=== PATIENT | male | born 1980 | race African-American/Black ===

== ENCOUNTER 2018-12-08 13:11 | Inpatient (IN) | payer OTHER ==
--- NOTE | 2018-12-08 14:18 | HP ---
CIWA Score Nausea/Vomitin-Int. Nausea w/Dry Heave Muscle Tremors: 5 Anxiety: 3 Agitation: 4-Moderately Restless Paroxysmal Sweats: 2 Orientation: 0-Oriented Tacttile Disturbances: 1-Very Mild Itch/Numbness Auditory Disturbances: 1-Very Mild Visual Disturbances: 1-Very Mild Sensitivity Headache: 0-None Present CIWA-Ar Total Score: 21 - Admission Criteria OASAS Guidelines: Admission for Medically Managed Detox: Requires at least one of the followin. CIWA greater than 12 2. Seizures within the past 24 hours 3. Delirium tremens within the past 24 hours 4. Hallucinations within the past 24 hours 5. Acute intervention needed for co occurring medical disorder 6. Acute intervention needed for co occurring psychiatric disorder 7. Severe withdrawal that cannot be handled at a lower level of care (continued vomiting, continued diarrhea, abnormal vital signs) requiring intravenous medication and/or fluids 8. Patient presents the following: CIWA greater than 12 Admission Criteria Met: Admission criteria met Admission ROS [facility] - [facility] Chief Complaint: " I got the shakes, I want to stop alcohol, nayan, and ecstasy" Allergies/Adverse Reactions: Allergies Allergy/AdvReac Type Severity Reaction Status Date / Time No Known Allergies Allergy Verified 12/08/18 14:18 History of Present Illness: 38 yo male with hx of alcohol, nayan /ecstasy marijuana, and nicotine dependence is here seeking alcohol detox, self referred. Reports frequent ER visits daily in the past week to [facility] for alcohol withdrawal, reports prior hx of DTS. PMHX: HTN, asthma, GERD, schizophrenia, bipolar and depression. Reports linked to the ACT team at [facility]. Denies suicidal / homicidal ideation. Last detox [facility] one month ago. [place] hx of seizures. reports frequent ETOH blackouts with last episode yesterday. Reports no significant period of sobriety. Exam Limitations: No Limitations - Ebola screening Have you traveled outside of the country in the last 21 days: No Have you had contact with anyone from an Ebola affected area: No - Review of Systems Constitutional: Chills, Loss of Appetite, Changes in sleep, Unintentional Wgt. Loss (appx 30 lbs), Other (fatigue, shakes) EENT: reports: Dental Problems (dentalgia) Respiratory: reports: No Symptoms reported Cardiac: reports: No Symptoms Reported GI: reports: Diarrhea, Nausea, Poor Appetite, Poor Fluid Intake, Abdominal cramping : reports: No Symptoms Reported Musculoskeletal: reports: No Symptoms Reported Integumentary: reports: No Symptoms Reported Neuro: reports: Weakness Endocrine: reports: Increased Thirst Hematology: reports: No Symptoms Reported Psychiatric: reports: Orientated x3, Anxious Other Systems: Reviewed and Negative Patient History - Patient Medical History Hx Anemia: No Hx Asthma: Yes Hx Chronic Obstructive Pulmonary Disease (COPD): No Hx Cancer: No Hx Cardiac Disorders: No Hx Congestive Heart Failure: No Hx Hypertension: Yes (no meds ) Hx Hypercholesterolemia: No Hx Pacemaker: No HX Cerebrovascular Accident: No Hx Seizures: No Hx Dementia: No Hx Diabetes: No Hx Gastrointestinal Disorders: Yes (GERD ) Hx Liver Disease: No Hx Genitourinary Disorders: No Hx Sexually Transmitted Disorders: No Hx Renal Disease (ESRD): No Hx Thyroid Disease: No Hx Human Immunodeficiency Virus (HIV): No Hx Hepatitis C: No Hx Depression: Yes Hx Bipolar Disorder: Yes Hx Schizophrenia: Yes - Patient Surgical History Past Surgical History: No - PPD History Previous Implant?: No (reports tx as child for TB ) Documented Results: Positive w/o proof PPD to be Administered?: No - Smoking Cessation Smoking history: Current every day smoker Have you smoked in the past 12 months: Yes Aproximately how many cigarettes per day: 50 Hx Chewing Tobacco Use: No Initiated information on smoking cessation: Yes 'Breaking Loose' booklet given: 12/08/18 - Substance & Tx. History Hx Alcohol Use: Yes Hx Substance Use: Yes Substance Use Type: Alcohol, Cocaine Hx Substance Use Treatment: Yes (Detox [facility] one month ago left AMA) - Substances Abused Alcohol Route: Oral Frequency: Daily Amount used: 1 gallon liquor Age of first use: 20 Date of Last Use: 12/08/18 nayan Route: Oral Frequency: Daily Amount used: 5 grams Age of first use: 34 Date of Last Use: 12/07/18 marijuana Route: Smoking Frequency: Daily Amount used: 1/2 oz Age of first use: 17 Date of Last Use: 12/08/18 Family Disease History - Family Disease History Family History: Denies Admission Physical Exam [facility] - Physical General Appearance: Yes: Disheveled (unkempt), Severe Distress, Thin, Tremorous , Sweating, Anxious HEENTM: Yes: Hearing grossly Normal, Normocephalic, Normal Voice, ODILIA, Pharynx Normal, Other (poor dentition, dry mucous membranes) Respiratory: Yes: Chest Non-Tender, Lungs Clear, Normal Breath Sounds, No Respiratory Distress, No Accessory Muscle Use Neck: Yes: Within Normal Limits Breast: Yes: Breast Exam Deferred Cardiology: Yes: Regular Rhythm, Tachycardia Abdominal: Yes: Normal Bowel Sounds, Non Tender, Flat, Soft Genitourinary: Yes: Within Normal Limits Back: Yes: Within Normal Limits Musculoskeletal: Yes: full range of Motion, Gait Steady, Pelvis Stable Extremities: Yes: Normal Capillary Refill, Normal Inspection, Normal Range of Motion Neurological: Yes: healthcare interpreter II-XII NML intact, Fully Oriented, Alert, Motor Strength 5/5, Depressed Affect Integumentary: Yes: Normal Color, Warm, Moist Lymphatic: Yes: Within Normal Limits - Diagnostic (1) Alcohol dependence with withdrawal Current Visit: Yes Status: Acute Qualifiers: Complication of substance-induced condition: uncomplicated Qualified Code(s ): F10.230 - Alcohol dependence with withdrawal, uncomplicated (2) Nicotine dependence Current Visit: Yes Status: Acute Qualifiers: Nicotine product type: cigarettes (3) History of treatment for tuberculosis Current Visit: Yes Status: Chronic (4) Psychiatric disorder Current Visit: Yes Status: Chronic Comment: reports hx of bipolar, schizophernia,and depression on hadolol Inj qm (5) Hypertension Current Visit: Yes Status: Chronic Qualifiers: Hypertension type: essential hypertension Qualified Code(s): I10 - Essential (primary) hypertension Comment: no meds (6) Elevated blood pressure reading with diagnosis of hypertension Current Visit: Yes Status: Acute (7) Asthma Current Visit: Yes Status: Chronic Qualifiers: Asthma severity: mild Asthma persistence: unspecified Asthma complication type: uncomplicated Qualified Code(s): J45.909 - Unspecified asthma, uncomplicated (8) Weight loss Current Visit: Yes Status: Acute Cleared for Admission [facility] - Detox or Rehab S Level of Care: Medically Managed Detox Regimen/Protocol: Librium Inpatient Rehab Admission - Rehab Decision to Admit Inpatient rehab admission?: No
[2018-12-08 14:20] VITALS: BMI 20.9
[2018-12-08] MEDS ORDERED: IBUPROFEN 400 MG TABLET (FP) PO PRN (14:21)
[2018-12-08] MEDS ORDERED: LOPERAMIDE HCL 2 MG CAPSULE PO PRN (14:21)
[2018-12-08] MEDS ORDERED: P-EPHED 60MG/TRIPROLIDI 2.5MG TABLET PO PRN (14:21)
[2018-12-08] MEDS ORDERED: guaiFENesin/D-METHORPHAN HB 10 ML UNIT-DOSE CUPS PO PRN (14:21)
[2018-12-08] MEDS ORDERED: MENTHOL/PHENOL 1 EACH UD MM PRN (14:21)
[2018-12-08] MEDS ORDERED: MAGNESIUM CITRATE 300 ML BOTTLE PO PRN (14:21)
[2018-12-08] MEDS ORDERED: MAGNESIUM HYDROX 2400MG/30ML ORAL SUSPENSION 30 ML CUP PO PRN (14:21)
[2018-12-08] MEDS ORDERED: ACETAMINOPHEN 325 MG TABLET (FP) PO PRN (14:21)
[2018-12-08] MEDS ORDERED: chlordiazePOXIDE HCL 25 MG CAPSULE PO ONE (16:45)
[2018-12-08] MEDS ORDERED: cloNIDine HCL 0.1 MG TABLET PO ONE (16:45)
[2018-12-08] MEDS: NICOTINE POLACRILEX 4 MG GUM BC PRN (17:33)
[2018-12-08] MEDS: THIAMINE HCL 100 MG TABLET (FP) PO SCH (22:29)
[2018-12-08] MEDS: BACLOFEN 10 MG TABLET (FP) PO SCH (22:29)
[2018-12-08] MEDS: chlordiazePOXIDE HCL 25 MG CAPSULE PO SCH (22:29)
[2018-12-08] MEDS: MAG HYDROX/AL HYDROX/SIMETH 30 ML UNIT-DOSE CUP PO PRN (22:30)
[2018-12-08] MEDS: MELATONIN 5 MG TABLETS PO PRN (22:30)
[2018-12-09] MEDS: chlordiazePOXIDE HCL 25 MG CAPSULE PO SCH ×4 (05:23→22:14)
[2018-12-09] MEDS: NICOTINE POLACRILEX 4 MG GUM BC PRN ×4 (05:25→22:15)
[2018-12-09] MEDS: NICOTINE 21 MG/24 HOURS TOPICAL PATCH TD SCH (10:14)
[2018-12-09] MEDS: BACLOFEN 10 MG TABLET (FP) PO SCH ×3 (10:14→22:15)
[2018-12-09] MEDS: PRENATAL VITAMINS W/ FOLIC ACID TABLET (FP) PO SCH (10:14)
[2018-12-09 10:53] LABS: HEMATOCRIT 35.9 % (35.4-49); HEMOGLOBIN 12.5 GM/dL (11.7-16.9); MCH 35.9 pg (25.7-33.7); MCHC 34.9 g/dl (32.0-35.9); MEAN CELL VOLUME 103.1 fl (80-96); MEAN PLT VOLUME 8.1 fl (7.5-11.1); PLATELET COUNT 272 K/MM3 (134-434); RBC 3.48 M/mm3 (4.00-5.60); WHITE BLOOD COUNT 8.2 K/mm3 (4.0-10.0)
[2018-12-09 11:12] LABS: ALBUMIN 3.2 g/dl (3.4-5.0); ALK PHOS 86 U/L (45-117); ANION GAP 7 MMOL/L (8-16); BILIRUBIN,TOTAL 0.3 mg/dL (0.2-1); BLOOD UREA NITROGEN 10 mg/dL (7-18); CALCIUM 8.7 mg/dL (8.5-10.1); CHLORIDE 104 mmol/L (98-107); CO2 27 mmol/L (21-32); CREATININE 0.8 mg/dL (0.55-1.3); GLUCOSE,RANDOM 91 mg/dL (74-106); POTASSIUM 3.6 mmol/L (3.5-5.1); SGOT/AST 56 U/L (15-37); SGPT/ALT 50 U/L (13-61); SODIUM 139 mmol/L (136-145); TOT PROT 6.4 g/dl (6.4-8.2)
--- NOTE | 2018-12-09 11:23 | PN ---
S CIWA - CIWA Score Nausea/Vomitin-Mild Nausea/No Vomiting Muscle Tremors: 4-Moderate,w/Arms Extend Anxiety: 4-Mod. Anxious/Guarded Agitation: 4-Moderately Restless Paroxysmal Sweats: 1-Minimal Palms Moist Orientation: 1-Uncertain about Date Tacttile Disturbances: 0-None Auditory Disturbances: 0-None Visual Disturbances: 0-None Headache: 1-Very Mild CIWA-Ar Total Score: 16 [facility] Progress Note (SOAP) Subjective: feet itchy redness between toes involuntary jaw movement increase baclofen to tid tremor sweating restlessness anxiety add librium 50 mg x 1 at 2 pm Objective: 12/09/18 11:21 Vital Signs Temperature 97.9 F 12/09/18 09:50 Pulse Rate 72 12/09/18 09:50 Respiratory Rate 20 12/09/18 09:50 Blood Pressure 126/84 12/09/18 09:50 O2 Sat by Pulse Oximetry (%) Laboratory Last Values WBC 8.2 K/mm3 (4.0-10.0) 12/09/18 05:45 RBC 3.48 M/mm3 (4.00-5.60) L 12/09/18 05:45 Hgb 12.5 GM/dL (11.7-16.9) 12/09/18 05:45 Hct 35.9 % (35.4-49) 12/09/18 05:45 MCV 103.1 fl (80-96) H 12/09/18 05:45 MCH 35.9 pg (25.7-33.7) H 12/09/18 05:45 MCHC 34.9 g/dl (32.0-35.9) 12/09/18 05:45 RDW 15.0 % (11.9-15.9) 12/09/18 05:45 Plt Count 272 K/MM3 (134-434) 12/09/18 05:45 MPV 8.1 fl (7.5-11.1) 12/09/18 05:45 Sodium 139 mmol/L (136-145) 12/09/18 05:45 Potassium 3.6 mmol/L (3.5-5.1) 12/09/18 05:45 Chloride 104 mmol/L (98-107) 12/09/18 05:45 Carbon Dioxide 27 mmol/L (21-32) 12/09/18 05:45 Anion Gap 7 MMOL/L (8-16) L 12/09/18 05:45 BUN 10 mg/dL (7-18) 12/09/18 05:45 Creatinine 0.8 mg/dL (0.55-1.3) 12/09/18 05:45 Creat Clearance w eGFR > 60 (>60) 12/09/18 05:45 Random Glucose 91 mg/dL (74-106) 12/09/18 05:45 Calcium 8.7 mg/dL (8.5-10.1) 12/09/18 05:45 Total Bilirubin 0.3 mg/dL (0.2-1) 12/09/18 05:45 AST 56 U/L (15-37) H 12/09/18 05:45 ALT 50 U/L (13-61) 12/09/18 05:45 Alkaline Phosphatase 86 U/L (45-117) 12/09/18 05:45 Total Protein 6.4 g/dl (6.4-8.2) 12/09/18 05:45 Albumin 3.2 g/dl (3.4-5.0) L 12/09/18 05:45 lab noted Assessment: 12/09/18 11:22 alcohol withdrawal sx fungal feet muscle spasm jaws involuntary muscle movement origin unknown 12/09/18 11:23 Plan: continue detox
--- NOTE | 2018-12-09 11:35 | CONSULT ---
[facility] Psychiatric Consult - Data Date of interview: 12/09/18 Admission source: Self-referred Identifying data: Mr Mayer is a 38 years old sigle Black male, father of a 20 years old daughter, unemployed on SSi, domiciled living with family seking detox treatment for alcohol, nayan and cannabis Substance Abuse History: Reports history of alcohol, nayan and matrijuana use. Refer to addiction counselor's summary for furthter information Medical History: Significant for bronchial asthma, hypertension, GERD and history of treatment for pulmonart tuberculosis as a child. Smokes cigarettes 2.5 ppd Psychiatric History: Reports that his first psychiatric contact was at age 20 when he was admitted to [facility] for auditory hallucinations. Reports multiple subsequent psychiatric inpatient admissions to various facilities including [facility] and most recently 6 months ago to [facility]. Reports seeing a psychiatrist, associate at [facility] ACT team and he is prescribed Haldol Decanoate 150 mg IM Q monthly. Denies previous suicidal attempt. At present, denies experiencing psychotic, manic or depressive symptoms, S/H ideations Physical/Sexual Abuse/Trauma History: Denies history of emotional, physical or sexual abuse as well as DV relationship. No service Additional Comment: Reports history of 2-3 previous misdemeanor arrest Mental Status Exam - Mental Status Exam Alert and Oriented to: Time, Place, Person Cognitive Function: Fair Patient Appearance: Well Groomed Mood: Hopeful, Euthymic Affect: Appropriate Patient Behavior: Cooperative Speech Pattern: Clear Voice Loudness: Normal Thought Process: Intact, Goal Oriented Hallucinations: Denies Suicidal Ideation: Denies Homicidal Ideation: Denies Insight/Judgement: Poor Sleep: Fair Appetite: Good Muscle strength/Tone: Normal Gait/Station: Normal Psychiatric Findings - Problem List (Williams 1, 2,3) (1) Schizoaffective disorder Current Visit: Yes Status: Chronic (2) Alcohol dependence with withdrawal Current Visit: Yes Status: Acute Qualifiers: Complication of substance-induced condition: uncomplicated Qualified Code(s ): F10.230 - Alcohol dependence with withdrawal, uncomplicated (3) Cannabis dependence Current Visit: Yes Status: Acute (4) Methamphetamine dependence Current Visit: Yes Status: Acute (5) Nicotine dependence Current Visit: Yes Status: Chronic Qualifiers: Nicotine product type: cigarettes (6) Asthma Current Visit: Yes Status: Chronic Qualifiers: Asthma severity: mild Asthma persistence: unspecified Asthma complication type: uncomplicated Qualified Code(s): J45.909 - Unspecified asthma, uncomplicated (7) Hypertension Current Visit: Yes Status: Chronic Qualifiers: Hypertension type: essential hypertension Qualified Code(s): I10 - Essential (primary) hypertension Comment: no meds (8) GERD (gastroesophageal reflux disease) Current Visit: Yes Status: Chronic (9) History of treatment for tuberculosis Current Visit: Yes Status: Resolved - Initial Treatment Plan Initial Treatment Plan: Patient is on Haldol Decanoate 150 mg IM Monthly. According to patient worker at [facility] ACT [phone]. he last received his Hadol Dec injection on 10/29/18. So patient was due for next on 11/26/18. Therefore patient is due for his injection. He will be administered Haldol Decanoate 100 mg IM today. Continue inpatient detoxification
[2018-12-09] MEDS ORDERED: chlordiazePOXIDE HCL 25 MG CAPSULE PO ONE (14:00)
[2018-12-09] MEDS: CLOTRIMAZOLE 1% CREAM 15 GM TUBE TP SCH ×2 (14:06→22:14)
[2018-12-09] MEDS ORDERED: HALOPERIDOL DECANOATE 100 MG/ML IM ONE (14:22)
--- NOTE | 2018-12-09 15:12 | PN ---
S CIWA - CIWA Score Nausea/Vomitin-Mild Nausea/No Vomiting Muscle Tremors: 1-None Visible, but [place] Anxiety: 0-No Anxiety, at Ease Agitation: 0-Normal Activity Paroxysmal Sweats: No Perspiration Orientation: 0-Oriented Tacttile Disturbances: 0-None Auditory Disturbances: 0-None Visual Disturbances: 0-None Headache: 0-None Present CIWA-Ar Total Score: 2 BHS Progress Note (SOAP) Subjective: pt states he is feeling fine with the alcohol detox protocol. O: Vital Signs - 24 hr 12/08/18 12/08/18 12/09/18 17:56 22:09 00:30 Temperature 97.2 F L 99 F Pulse Rate 86 97 H Respiratory 18 18 18 Rate Blood Pressure 166/103 H 129/78 12/09/18 12/09/18 12/09/18 03:30 06:29 06:30 Temperature 96.4 F L Pulse Rate 67 Respiratory 18 18 18 Rate Blood Pressure 122/76 12/09/18 12/09/18 09:50 13:44 Temperature 97.9 F 97.6 F Pulse Rate 72 74 Respiratory 20 20 Rate Blood Pressure 126/84 138/87 Laboratory Tests 12/09/18 12/09/18 12/09/18 05:45 05:45 05:45 WBC 8.2 RBC 3.48 L Hgb 12.5 Hct 35.9 MCV 103.1 H MCH 35.9 H MCHC 34.9 RDW 15.0 Plt Count 272 MPV 8.1 Sodium 139 Potassium 3.6 Chloride 104 Carbon Dioxide 27 Anion Gap 7 L BUN 10 Creatinine 0.8 Creat Clearance w eGFR > 60 Random Glucose 91 Calcium 8.7 Total Bilirubin 0.3 AST 56 H ALT 50 Alkaline Phosphatase 86 Total Protein 6.4 Albumin 3.2 L RPR Titer Nonreactive continue alcohol detox protocol nl Hct, high MCV may be B12/folate deficient- pt on MVI's
[2018-12-09] MEDS: chlordiazePOXIDE HCL 25 MG CAPSULE PO PRN ×2 (15:29→20:49)
[2018-12-09] MEDS: MAG HYDROX/AL HYDROX/SIMETH 30 ML UNIT-DOSE CUP PO PRN (17:41)
[2018-12-09] MEDS: THIAMINE HCL 100 MG TABLET (FP) PO SCH (22:14)
[2018-12-09] MEDS: MELATONIN 5 MG TABLETS PO PRN (22:15)
[2018-12-10] MEDS: hydrOXYzine PAMOATE 50 MG CAPSULE (FP) PO PRN ×3 (01:56→17:20)
--- NOTE | 2018-12-10 02:40 | EKG ---
Test Reason : Blood Pressure : / mmHG Vent. Rate : 073 BPM Atrial Rate : 073 BPM P-R Int : 116 ms QRS Dur : 086 ms QT Int : 396 ms P-R-T Axes : -23 076 078 degrees QTc Int : 436 ms NORMAL SINUS RHYTHM WITH SINUS ARRHYTHMIA NORMAL ECG NO PREVIOUS ECGS AVAILABLE Confirmed by ADRIÁN BEY, CAMMIE ([id number]) on 12/10/2018 2:39:46 AM Referred By: Confirmed By:CAMMIE SAMPSON MD
[2018-12-10] MEDS: chlordiazePOXIDE HCL 25 MG CAPSULE PO SCH ×3 (07:25→17:20)
[2018-12-10] MEDS: BACLOFEN 10 MG TABLET (FP) PO SCH ×3 (07:28→22:34)
[2018-12-10] MEDS: CLOTRIMAZOLE 1% CREAM 15 GM TUBE TP SCH ×2 (10:06→22:33)
[2018-12-10] MEDS: NICOTINE POLACRILEX 4 MG GUM BC PRN ×2 (10:07→13:02)
[2018-12-10] MEDS: PRENATAL VITAMINS W/ FOLIC ACID TABLET (FP) PO SCH (10:07)
[2018-12-10] MEDS: NICOTINE 21 MG/24 HOURS TOPICAL PATCH TD SCH (10:07)
--- NOTE | 2018-12-10 11:04 | PN ---
[facility] CIWA - CIWA Score Nausea/Vomitin-No Nausea/No Vomiting Muscle Tremors: 2 Anxiety: 1-Mildly Anxious Agitation: 1-Slight > Activity Paroxysmal Sweats: 1-Minimal Palms Moist Orientation: 0-Oriented Tacttile Disturbances: 0-None Auditory Disturbances: 4-Moderate Hallucination Visual Disturbances: 0-None Headache: 0-None Present CIWA-Ar Total Score: 9 S Progress Note (SOAP) Subjective: report doing much better today less jaw movement less tremor mild sweating sleep better at night Objective: 12/10/18 11:03 Vital Signs Temperature 98.3 F 12/10/18 09:29 Pulse Rate 58 L 12/10/18 09:29 Respiratory Rate 18 12/10/18 09:29 Blood Pressure 144/98 12/10/18 09:29 O2 Sat by Pulse Oximetry (%) Laboratory Last Values WBC 8.2 K/mm3 (4.0-10.0) 12/09/18 05:45 RBC 3.48 M/mm3 (4.00-5.60) L 12/09/18 05:45 Hgb 12.5 GM/dL (11.7-16.9) 12/09/18 05:45 Hct 35.9 % (35.4-49) 12/09/18 05:45 MCV 103.1 fl (80-96) H 12/09/18 05:45 MCH 35.9 pg (25.7-33.7) H 12/09/18 05:45 MCHC 34.9 g/dl (32.0-35.9) 12/09/18 05:45 RDW 15.0 % (11.9-15.9) 12/09/18 05:45 Plt Count 272 K/MM3 (134-434) 12/09/18 05:45 MPV 8.1 fl (7.5-11.1) 12/09/18 05:45 Sodium 139 mmol/L (136-145) 12/09/18 05:45 Potassium 3.6 mmol/L (3.5-5.1) 12/09/18 05:45 Chloride 104 mmol/L (98-107) 12/09/18 05:45 Carbon Dioxide 27 mmol/L (21-32) 12/09/18 05:45 Anion Gap 7 MMOL/L (8-16) L 12/09/18 05:45 BUN 10 mg/dL (7-18) 12/09/18 05:45 Creatinine 0.8 mg/dL (0.55-1.3) 12/09/18 05:45 Creat Clearance w eGFR > 60 (>60) 12/09/18 05:45 Random Glucose 91 mg/dL (74-106) 12/09/18 05:45 Calcium 8.7 mg/dL (8.5-10.1) 12/09/18 05:45 Total Bilirubin 0.3 mg/dL (0.2-1) 12/09/18 05:45 AST 56 U/L (15-37) H 12/09/18 05:45 ALT 50 U/L (13-61) 12/09/18 05:45 Alkaline Phosphatase 86 U/L (45-117) 12/09/18 05:45 Total Protein 6.4 g/dl (6.4-8.2) 12/09/18 05:45 Albumin 3.2 g/dl (3.4-5.0) L 12/09/18 05:45 RPR Titer Nonreactive (NONREACTIVE) 12/09/18 05:45 lab noted Assessment: 12/10/18 11:04 withdrawal sx Plan: continue detox
[2018-12-10] MEDS: THIAMINE HCL 100 MG TABLET (FP) PO SCH (22:33)
[2018-12-10] MEDS: chlordiazePOXIDE 5 MG CAPSULE PO SCH (22:33)
[2018-12-11] MEDS: chlordiazePOXIDE 5 MG CAPSULE PO SCH ×2 (05:17→11:02)
[2018-12-11 06:12] VITALS: BP 152/95; PULSE 95; TEMP 97.5
[2018-12-11] MEDS: BACLOFEN 10 MG TABLET (FP) PO SCH (07:25)
[2018-12-11] MEDS: NICOTINE POLACRILEX 4 MG GUM BC PRN (08:57)
--- NOTE | 2018-12-11 09:15 | DS ---
[facility] Detox Discharge Summary Admission Date: 12/08/18 Discharge Date: 12/11/18 - History Present History: Alcohol Dependence, Cannabis Dependence Additional Comments: MDMA - Physical Exam Results Vital Signs: Vital Signs Temperature 97.5 F L 12/11/18 06:12 Pulse Rate 95 H 12/11/18 06:12 Respiratory Rate 18 12/11/18 06:30 Blood Pressure 152/95 12/11/18 06:12 O2 Sat by Pulse Oximetry (%) - Treatment Hospital Course: Detox Protocol Followed, Detoxed Safely, Responded well, Discharged Condition Good - Medication Discharge Medications: Ambulatory Orders Haloperidol Injection [Haldol Injection (Fast Acting) -] 5 ml IM MONTHLY - Diagnosis (1) Methylenedioxymethyamphetamine (MDMA) use disorder, moderate Current Visit: Yes Status: Chronic (2) Alcohol dependence with withdrawal Current Visit: Yes Status: Chronic Qualifiers: Complication of substance-induced condition: uncomplicated Qualified Code(s ): F10.230 - Alcohol dependence with withdrawal, uncomplicated (3) Cannabis dependence Current Visit: Yes Status: Chronic - AMA Did Patient Leave Against Medical Advice: No
[2018-12-11] MEDS: PRENATAL VITAMINS W/ FOLIC ACID TABLET (FP) PO SCH (10:16)
[2018-12-11] MEDS: NICOTINE 21 MG/24 HOURS TOPICAL PATCH TD SCH (11:02)
[2018-12-11] MEDS: CLOTRIMAZOLE 1% CREAM 15 GM TUBE TP SCH (11:02)
[2018-12-11] MEDS ORDERED: chlordiazePOXIDE HCL 10 MG CAPSULE PO SCH (23:00)
== END 2018-12-11 12:17 | disposition home or self-care (01) | DRG 897 ==
LOC: YASAS 13:11 → Y3N 16:12
PROVIDERS: ADMIT Surgery; ATTEND Surgery
PROC: HZ2ZZZZ Detoxification Services for Substance Abuse Treatment (ICD-10-PCS; principal; 2018-12-08)
DX: F10.230 Alcohol dependence with withdrawal, uncomplicated (principal); F15.20 Other stimulant dependence, uncomplicated; F12.20 Cannabis dependence, uncomplicated; F17.210 Nicotine dependence, cigarettes, uncomplicated; F25.9 Schizoaffective disorder, unspecified; F31.9 Bipolar disorder, unspecified; I10 Essential (primary) hypertension; K21.9 Gastro-esophageal reflux disease without esophagitis; B35.3 Tinea pedis; R76.11 Nonspecific reaction to tuberculin skin test without active tuberculosis; M62.838 Other muscle spasm; R25.8 Other abnormal involuntary movements
CPT/HCPCS: 36415; 80053; 85027; 86593; 93005; 93010; J0475; J0735